=== PATIENT | male | born 1995 | race Caucasian/White ===

== ENCOUNTER 2018-08-31 15:02 | Emergency (ER) | payer OTHER ==
--- NOTE | 2018-08-31 15:20 | ED ---
Upper Extremity Pain - HPI Summary HPI Summary: Pt. is a 22 y.o who presents to the ER for right shoulder injury that occurred just prior to arrival. Pt. states he jumped in the nicoals at about 3 feet and then did a butterfly stroke and felt a pop in his right shoulder. No other injuries were sustained. Sxs are mild in severity. Movement makes sxs worse. Nothing makes sxs better. - History of Current Complaint Chief Complaint: EDExtremityUpper Stated Complaint: POSS DISLOCATION R ARM PER PT Time Seen by Provider: 08/31/18 15:14 Hx Obtained From: Patient - Allergies/Home Medications Allergies/Adverse Reactions: Allergies Allergy/AdvReac Type Severity Reaction Status Date / Time No Known Allergies Allergy Verified 08/31/18 15:11 PMH/Surg Hx/FS Hx/Imm Hx Previously Healthy: Yes Infectious Disease History: No Infectious Disease History: Denies: Traveled Outside the [place] in Last 30 Days Review of Systems Cardiovascular: Negative Negative: Chest Pain Respiratory: Negative Negative: Shortness Of Breath Positive: Other - right shoulder injury Positive: Paresthesia All Other Systems Reviewed And Are Negative: Yes Physical Exam Triage Information Reviewed: Yes Vital Signs On Initial Exam: Initial Vitals Temp Pulse Resp BP Pulse Ox 99.4 F 82 16 0/0 97 08/31/18 15:07 08/31/18 15:07 08/31/18 15:07 08/31/18 15:07 08/31/18 15:07 Vital Signs Reviewed: Yes Appearance: Positive: Well-Appearing - Pt. sittin in chair with right arm propped up. Appears uncomfortable but nontoxic. Skin: Positive: Warm, Dry Head/Face: Positive: Normal Head/Face Inspection Eyes: Positive: Normal, EOMI Procedures - Joint Reduction Right Joint Reduction Site: shoulder (R) Conscious Sedation: No Reduction Attempts: 1 Pre-Procedure NV Exam: Yes Post Joint Reduction Film: joint reduced Diagnostics - Vital Signs Vital Signs Temp Pulse Resp BP Pulse Ox 08/31/18 15:07 99.4 F 82 16 0/0 97 - Laboratory Lab Statement: Any lab studies that have been ordered have been reviewed, and results considered in the medical decision making process. Course/Dx - Course Course Of Treatment: Pt. with likely shoulder dislocation. Pt. denies any pain medication. Shoulder xray confirms anterior dislocation. Pt. would like shoulder reduced without any medication or sedation. Shoulder was easily reduced with external rotation and immobilzer applies. Pt. tolerated well. Post reduction film shows reduction. Pt. visiting [place], he will f.u with an orthopedic physician when he returns home within one week. To keep immobilizer in place. ice intermittently. Tylenol or motrin for pain as directed. Pt. understands and agrees with plan. - Diagnoses Differential Diagnosis/HQI/PQRI: Positive: Fracture (Closed), Strain, Sprain Provider Diagnoses: Shoulder dislocation Discharge - Sign-Out/Discharge Documenting (check all that apply): Patient Departure Patient Received Moderate/Deep Sedation with Procedure: No - Discharge Plan Condition: Improved Disposition: HOME Patient Education Materials: Shoulder Dislocation (ED) Referrals: Brice Esposito MD [Medical Doctor] - Additional Instructions: Call your PCP tomorrow for referral to an orthopedic physician as soon as possible Keep immobilizer in place Ice intermittently Tylenol or Motrin for pain as directed Return to ER if symptoms change or worsen - Billing Disposition and Condition Condition: IMPROVED Disposition: Home
[2018-08-31 16:52] VITALS: BP 139/73
== END 2018-08-31 16:51 | disposition home or self-care (01) ==
LOC: ED 15:02
DX: S43.004A Unspecified dislocation of right shoulder joint, initial encounter (principal); W16.612A Jumping or diving into natural body of water striking water surface causing other injury, initial encounter; Y93.11 Activity, swimming; Y92.828 Other wilderness area as the place of occurrence of the external cause
CPT/HCPCS: 23650; 99282